=== PATIENT | female | born 1980 | race African-American/Black ===

== ENCOUNTER 2017-01-09 17:23 | Emergency (ER) | payer OTHER ==
[2017-01-09 17:28] VITALS: BP 132/74; PULSE 87; TEMP 98.3; BMI 32.8
--- NOTE | 2017-01-09 18:32 | PDOC ---
History of Present Illness - General History Source: Patient Exam Limitations: No Limitations - History of Present Illness Initial Comments: 01/09/17 19:29 The patient is a 36 year old female with a significant past medical history of anemia, presenting to the Emergency Department with right eye swelling, and generalized weakness. The patient reports that a few days ago she irritated her eye when face scrub got into her right eye. She reports seeing her PCP for the eye swelling, who diagnosed her with a stye. She admits that her eye is still slightly swollen and irritated. She also reports that she has been feeling overall weak as of this morning. 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 She admits that her bowel movements have been loose over the past few days. She denies a change in diet, though she admits to eating a diet heavy in carbs. The patient denies blurry vision, double vision, and change in vision. Patient denies nausea, vomiting, and diarrhea. Patient denies lightheadedness, dizziness , or syncope. Patient denies fever, chills, and cough. PCP: Dr. Oliva <Sybil Quintero - Last Filed: 01/09/17 19:29> <Sherri Oviedo - Last Filed: 01/11/17 03:21> - General Chief Complaint: Chest Pain Stated Complaint: CHEST PAIN/RT EYE PROBLEM Time Seen by Provider: 01/09/17 18:27 Past History <Sybil Quintero - Last Filed: 01/09/17 19:29> - Past Medical History Other medical history: denies - Psycho/Social/Smoking Cessation Hx Anxiety: No Suicidal Ideation: No Smoking History: Current every day smoker Have you smoked in the past 12 months: Yes Number of Cigarettes Smoked Daily: 12 Information on smoking cessation initiated: No 'Breaking Loose' booklet given: 01/09/17 Hx Alcohol Use: No Drug/Substance Use Hx: No Substance Use Type: None <Sherri Oviedo - Last Filed: 01/11/17 03:21> - Past Medical History Allergies/Adverse Reactions: Allergies Allergy/AdvReac Type Severity Reaction Status Date / Time codeine Allergy PALPITATION Verified 10/13/16 07:34 S Home Medications: Ambulatory Orders Erythromycin 0.5% Eye Ointment [Erythromycin 0.5% Eye Ointment -] 1 applic OD BID #1 tube 01/09/17 Review of Systems - Review of Systems Able to Perform ROS?: Yes Comments:: 01/09/17 19:29 GENERAL/CONSTITUTIONAL: + generalized weakness. No fever or chills. HEAD, EYES, EARS, NOSE AND THROAT: + right eye swelling. No change in vision. No ear pain or discharge. No sore throat. CARDIOVASCULAR: No chest pain or shortness of breath. RESPIRATORY: No cough, wheezing, or hemoptysis. GASTROINTESTINAL: No nausea, vomiting, diarrhea or constipation. GENITOURINARY: No dysuria, frequency, or change in urination. MUSCULOSKELETAL: No joint or muscle swelling or pain. No neck or back pain. SKIN: No rash NEUROLOGIC: No headache, vertigo, loss of consciousness, or change in strength/ sensation. ENDOCRINE: No increased thirst. No abnormal weight change. HEMATOLOGIC/LYMPHATIC: No easy bleeding, or history of blood clots. ALLERGIC/IMMUNOLOGIC: No hives or skin allergy. <Sybil Quintero - Last Filed: 01/09/17 19:29> *Physical Exam - Vital Signs Last Vital Signs Temp Pulse Resp BP Pulse Ox 98.3 F 87 18 132/74 99 01/09/17 17:25 01/09/17 17:25 01/09/17 17:25 01/09/17 17:25 01/09/17 17:25 - Physical Exam Comments: 01/09/17 19:31 GENERAL: Awake, alert, and fully oriented, in no acute distress HEAD: No signs of trauma EYES: PERRLA, EOMI, sclera anicteric, conjunctiva clear ENT: Auricles normal inspection, hearing grossly normal, nares patent, oropharynx clear without exudates. Moist mucosa NECK: Normal ROM, supple, no lymphadenopathy, JVD, or masses LUNGS: Breath sounds equal, clear to auscultation bilaterally. No wheezes, and no crackles HEART: Regular rate and rhythm, normal S1 and S2, no murmurs, rubs or gallops ABDOMEN: Soft, nontender, normoactive bowel sounds. No guarding, no rebound. No masses EXTREMITIES: Normal range of motion, no edema. No clubbing or cyanosis. No cords, erythema, or tenderness NEUROLOGICAL: Cranial nerves II through XII grossly intact. Normal speech, normal gait SKIN: Warm, Dry, normal turgor, no rashes or lesions noted. <Sybil Quintero - Last Filed: 01/09/17 19:29> - Vital Signs Last Vital Signs Temp Pulse Resp BP Pulse Ox 98.3 F 87 18 132/74 99 01/09/17 17:25 01/09/17 17:25 01/09/17 17:25 01/09/17 17:25 01/09/17 17:25 <Sherri Oviedo - Last Filed: 01/11/17 03:21> ED Treatment Course - ADDITIONAL ORDERS Additional order review: Laboratory Results 01/09/17 18:54 Urine HCG, Qual Negative <Sybil Quintero - Last Filed: 01/09/17 19:29> - LABORATORY CBC & Chemistry Diagram: 01/09/17 19:43 01/09/17 19:43 <Sherri Oviedo - Last Filed: 01/11/17 03:21> Medical Decision Making - Medical Decision Making 01/09/17 20:20 CXR normal; EKG NSR; HB/HCT normal; chem pending 01/11/17 03:19 PT HAS A STYE; HOWEVER SHE FEARS THAT SHE IS ANEMIC AND SHE ALSO COMPLAINS OF CHEST PAIN. SHE HAS A NORMAL EXAM; SHE HAS NORMAL LABS. SHE WILL BE ASKED TO FOLLOW WITH HER PMD; I WILL GIVE HER ERYTHROMYCIN OINTMENT FOR HER EYE, SHE STATES THAT HER EYEDROPS ARE NOT HELPING HER. FLUROESCINE EXAM DEMONSTRATES NO CORNEAL ABRASION. <Sherri Oviedo - Last Filed: 01/11/17 03:21> *DC/Admit/Observation/Transfer - Attestations Scribe Attestion: 01/09/17 19:31 Documentation prepared by Sybil Quintero, acting as director medical science for Sherri Oviedo MD. <Sybil Quintero - Last Filed: 01/09/17 19:29> - Discharge Dispostion Admit: No <Sherri Oviedo - Last Filed: 01/11/17 03:21> Diagnosis at time of Disposition: Irritation of right eye, Atypical chest pain, Stye - Discharge Dispostion Disposition: HOME Condition at time of disposition: Stable - Prescriptions Prescriptions: Erythromycin 0.5% Eye Ointment [Erythromycin 0.5% Eye Ointment -] 1 applic OD BID #1 tube - Referrals Referrals: Linden Oliva MD [Primary Care Provider] - Nathanael Mckeon [Staff Physician] - - Patient Instructions Printed Discharge Instructions: DI for Atypical Chest Pain, DI for Hordeolum
[2017-01-09] MEDS ORDERED: ERYTHROMYCIN 0.5% OPHTHALMIC OINTMENT 3.5 GM TUBE OD ONE (19:19)
[2017-01-09] MEDS ORDERED: TETRACAINE 0.5% OPHTH SOLN 2 ML BOTTLE ONE (19:28)
[2017-01-09] MEDS ORDERED: FLUORESCEIN NA 1 EA STRIP ONE (19:28)
[2017-01-09] MEDS ORDERED: ERYTHROMYCIN 0.5% OPHTHALMIC OINTMENT 3.5 GM TUBE ONE (19:28)
[2017-01-09 19:51] LABS: BASOPHIL 1.2 % (0-2.0); EOSINOPHIL 4.2 % (0-4.5); MCH 30.4 pg (25.7-33.7); MCHC 33.6 g/dl (32.0-36.0); MEAN CELL VOLUME 90.3 fl (80-96); MEAN PLT VOLUME 7.8 fl (7.5-11.1); NEUTROPHILS 51.9 % (42.8-82.8); PLATELET COUNT 237 K/MM3 (134-434); RDW 14.1 % (11.6-15.6); WHITE BLOOD COUNT 5.8 K/mm3 (4.0-10.0)
[2017-01-09 20:18] LABS: ALBUMIN 3.4 g/dl (3.4-5.0); ANION GAP 8 (8-16); CALCIUM 9.3 mg/dL (8.5-10.1); CO2 29 mmol/L (21-32); GLUCOSE,RANDOM 98 mg/dL (74-106); SGPT/ALT 26 U/L (12-78)
[2017-01-09 20:21] LABS: ALK PHOS 64 U/L (45-117); BILIRUBIN,TOTAL 0.3 mg/dL (0.2-1.0); COCKROFT - GAULT 143.3695; CREATININE 0.8 mg/dL (0.55-1.02); SGOT/AST 24 U/L (15-37); TOT PROT 6.9 g/dl (6.4-8.2)
--- NOTE | 2017-01-11 12:15 | EKG ---
Test Reason : Blood Pressure : / mmHG Vent. Rate : 090 BPM Atrial Rate : 090 BPM P-R Int : 166 ms QRS Dur : 084 ms QT Int : 362 ms P-R-T Axes : 043 017 044 degrees QTc Int : 442 ms NORMAL SINUS RHYTHM NORMAL ECG WHEN COMPARED WITH ECG OF 20-AUG-2015 07:43, NO SIGNIFICANT CHANGE WAS FOUND Confirmed by MANJINDER CELESTIN MD ([id number]) on 01/11/2017 12:15:31 PM Referred By: Confirmed By:MANJINDER CELESTIN MD
== END 2017-01-09 20:58 | disposition home or self-care (01) ==
LOC: JER 17:23
DX: R07.89 Other chest pain (principal); H00.013 Hordeolum externum right eye, unspecified eyelid
CPT/HCPCS: 36415; 71020-TC; 80053; 84703; 85025; 93005; 93010; 99283-25

== ENCOUNTER 2017-04-06 08:06 | Emergency (ER) | payer OTHER ==
[2017-04-06 08:16] VITALS: BP 131/81; PULSE 81; TEMP 97.8; BMI 33.2
[2017-04-06] MEDS ORDERED: IBUPROFEN 600 MG TABLET (FP) PO ONE ×2 (08:42→08:43)
--- NOTE | 2017-04-06 08:48 | PDOC ---
History of Present Illness - General Chief Complaint: Ear Problem Stated Complaint: EAR PROBLEM Time Seen by Provider: 04/06/17 08:25 History Source: Patient Exam Limitations: No Limitations - History of Present Illness Initial Comments: 04/06/17 08:43 CHIEF COMPLAINT: Left Ear pain HISTORY OF PRESENT ILLNESS: This is an otherwise healthy, 37-year-old female. She presents complaining of left ear pain. Currently on Augmentin for dental work. States that she feels a foreign body to the left ear. Uses a alessia pin to scratch ear from her wig. REVIEW OF SYSTEMS: GENERAL/CONSTITUTIONAL: No fever or chills. No weakness. No weight change. HEAD, EYES, EARS, NOSE AND THROAT: Foreign body sensation to the left ear since last night. No radiating pain. No change in hearing. NEUROLOGIC: Intermittent headache. No vertigo, loss of consciousness, or loss of sensation. ALLERGIC/IMMUNOLOGIC: No hives or skin allergy. No latex allergy. PHYSICAL EXAM: GENERAL: The patient is awake, alert, and fully oriented, in no acute distress. HEAD: Normal with no signs of trauma. ENT: Left auditory canal with small abrasion and TM are normal. Right auditory canal normal. TM pearly goodwin with normal light reflex. No Tenderness over mastoid. Pupils equal, round and reactive to light, extraocular movements intact , sclera anicteric, conjunctiva clear. Neck supple. No adenopathy. NEUROLOGICAL: Normal speech, normal gait. CN II-XII grossly intact. PSYCH: Normal mood, normal affect. SKIN: Warm, Dry, normal turgor, no rashes or lesions noted. Past History - Past Medical History Allergies/Adverse Reactions: Allergies Allergy/AdvReac Type Severity Reaction Status Date / Time codeine Allergy PALPITATION Verified 04/06/17 08:16 S Home Medications: Ambulatory Orders Amox-Tr/K Cl [Augmentin 875-125mg Tablet -] 1 tab PO BID 04/06/17 Ciprofloxacin HCl/Dexameth [Ciprodex Otic Suspension] 4 drop BID #1 bottle - Psycho/Social/Smoking Cessation Hx Anxiety: No Suicidal Ideation: No Smoking History: Current every day smoker Have you smoked in the past 12 months: Yes Number of Cigarettes Smoked Daily: 12 Information on smoking cessation initiated: No 'Breaking Loose' booklet given: 04/22/17 Hx Alcohol Use: No Drug/Substance Use Hx: No Substance Use Type: None *Physical Exam - Vital Signs Last Vital Signs Temp Pulse Resp BP Pulse Ox 97.8 F 81 18 131/81 98 04/06/17 08:12 04/06/17 08:12 04/06/17 08:12 04/06/17 08:12 04/06/17 08:12 Medical Decision Making - Medical Decision Making 04/06/17 08:46 A/P: Abrasion to the left auditory canal. Will give Cipro based drop Motrin for pain Follow up with ENT. *DC/Admit/Observation/Transfer Diagnosis at time of Disposition: Abrasion of ear canal Qualifiers: Encounter type: initial encounter Laterality: left Qualified Code(s): S00.412A - Abrasion of left ear, initial encounter - Discharge Dispostion Disposition: HOME Condition at time of disposition: Good Admit: No - Prescriptions Prescriptions: Ciprofloxacin HCl/Dexameth [Ciprodex Otic Suspension] 4 drop BID #1 bottle - Referrals Referrals: Linden Oliva MD [Primary Care Provider] -
== END 2017-04-06 08:52 | disposition home or self-care (01) ==
LOC: JERFT 08:06
DX: S00.412A Abrasion of left ear, initial encounter (principal); W22.8XXA Striking against or struck by other objects, initial encounter; Y93.E8 Activity, other personal hygiene; Y92.038 Other place in apartment as the place of occurrence of the external cause; F17.210 Nicotine dependence, cigarettes, uncomplicated
CPT/HCPCS: 99281-25

== ENCOUNTER 2018-11-23 07:27 | Emergency (ER) | payer OTHER ==
[2018-11-23 07:56] VITALS: TEMP 98.1; BMI 29.7
[2018-11-23] MEDS ORDERED: KETOROLAC TROMETHAMINE 30 MG/1 ML VIAL IVPUSH ONE (09:26)
--- NOTE | 2018-11-23 09:54 | PDOC ---
History of Present Illness - General Chief Complaint: Blood Pressure Problem Stated Complaint: HEAD PAIN Time Seen by Provider: 11/23/18 08:24 History Source: Patient Exam Limitations: No Limitations - History of Present Illness Initial Comments: 11/23/18 09:09 38-year-old female presents to ED with complaints of right calf pain for the past week worsened with bending and notes intermittent swelling to her ankle. 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 Patient also complaining of right ear pain which she just started eardrops for last evening prescribed by her PCP but states pain continues now radiating to her right temporal region and throat. Patient denies fever, chills, visual changes, neck stiffness or difficulty swallowing. Patient states is normally very anxious and started to think if she had a clot in her leg along with of clot in her brain and this morning after checking her blood pressure she stated she felt chest pain and difficulty breathing which lasted about 5 minutes and then resolved after utilizing relaxation methods. Patient currently denies any chest pain palpitations difficulty breathing or respiratory symptoms. Patient states took Excedrin yesterday with no improvement and also took a friend's pill which she states was hydroxyzine 25 mg while at work yesterday due to anxiety. Timing/Duration: other Severity: mild, moderate Associated Symptoms: reports: headaches Past History - Travel Traveled outside of the country in the last 30 days: No Close contact w/someone who was outside of country & ill: No - Past Medical History Allergies/Adverse Reactions: Allergies Allergy/AdvReac Type Severity Reaction Status Date / Time codeine Allergy PALPITATION Verified 11/23/18 07:45 S Home Medications: Ambulatory Orders NK [No Known Home Medication] 11/23/18 COPD: No - Suicide/Smoking/Psychosocial Hx Smoking History: Never smoked Have you smoked in the past 12 months: Yes Number of Cigarettes Smoked Daily: 12 'Breaking Loose' booklet given: 01/09/17 Hx Alcohol Use: No Drug/Substance Use Hx: No Substance Use Type: None Patient Lives Alone: Yes Lives with/in: lives alone Review of Systems - Review of Systems Able to Perform ROS?: Yes Constitutional: No: Symptoms Reported HEENTM: Yes: Ear Pain, Throat Pain Respiratory: No: Cough, Shortness of Breath Cardiac (ROS): No: Chest Pain ABD/GI: No: Symptoms Reported : No: Symptoms Reported Musculoskeletal: Yes: Muscle Pain (right calf) Integumentary: No: Symptoms Reported Neurological: Yes: Headache. No: Weakness, Dizziness Endocrine: No: Symptoms Reported Hematologic/Lymphatic: No: Symptoms Reported *Physical Exam - Vital Signs Last Vital Signs Temp Pulse Resp BP Pulse Ox 98.1 F 82 18 143/100 100 11/23/18 07:52 11/23/18 07:52 11/23/18 07:52 11/23/18 07:52 11/23/18 07:52 - Physical Exam General Appearance: Yes: Nourished, Appropriately Dressed. No: Apparent Distress HEENT: positive: EOMI, GINETTE, TMs Normal (right ear canal erythematous), Pharynx Normal. negative: Pale Conjunctivae Neck: positive: Normal Thyroid, Supple. negative: Tender, Decreased range of motion Respiratory/Chest: positive: Lungs Clear, Normal Breath Sounds. negative: Chest Tender, Respiratory Distress, Accessory Muscle Use Cardiovascular: positive: Regular Rhythm, Regular Rate. negative: Murmur Gastrointestinal/Abdominal: positive: Soft. negative: Tenderness Extremity: positive: Normal Capillary Refill, Normal Inspection, Normal Range of Motion, Tender (right calf and posterior aspect of right knee no palpable masses no swelling), Other (negative Homans sign /no edema/ no skin discoloration, ) Integumentary: positive: Normal Color, Warm, Moist Neurologic: positive: Motor Strength 5/5 (ambulatory) Moderate Sedation - Procedure Monitoring Vital Signs: Procedure Monitoring Vital Signs Temperature 98.1 F 11/23/18 07:52 Pulse Rate 82 11/23/18 07:52 Respiratory Rate 18 11/23/18 07:52 Blood Pressure 143/100 11/23/18 07:52 O2 Sat by Pulse Oximetry (%) 100 11/23/18 07:52 Heart Score/ECG Review - ECG Intrepretation Rhythm: Regular Rhythm (Rate 73. Sinus rhythm with PAC. No ST elevation or depression) ED Treatment Course - LABORATORY CBC & Chemistry Diagram: 11/23/18 09:53 11/23/18 09:53 - RADIOLOGY Radiology Studies Ordered: Category Date Time Status HEAD CT WITHOUT CONTRAST [CT] Stat CT Scan 11/23/18 09:25 Ordered DUPLEX VASCUL US-1 LEG [US] Stat Ultrasound 11/23/18 09:25 Ordered Medical Decision Making - Medical Decision Making 11/23/18 09:09 Chief complaint: Patient with headache right ear pain and right calf pain patient denies history of migraine but states has had similar headaches in took an Excedrin with no relief. Patient states also took a hydroxyzine 2 days ago secondary to anxiety which she feels triggered her symptoms of headache. Patient denies history of hypertension but states does not follow a low-fat low- salt diet and her mother has history of hypertension. Exam BP 143/100 right calf tenderness on exam. Negative Homans erythema noted to right ear canal TM intact, Plan: Head CT, CBC, comp, EKG duplex lower extremity and Toradol IV 11/23/18 11:36 Laboratory Tests 11/23/18 11/23/18 11/23/18 09:53 09:53 09:53 WBC 4.5 Hgb 13.4 Hct 38.9 Monocytes % 10.7 H Sodium 141 Potassium 4.1 Chloride 110 H Carbon Dioxide 26 Anion Gap 6 L BUN 8 Creatinine 0.8 Creat Clearance w eGFR > 60 Random Glucose 82 Calcium 8.4 L Total Bilirubin 0.3 AST 19 ALT 25 Alkaline Phosphatase 61 Albumin 3.4 Serum , Qual Negative Duplex negative for deep venous thrombosis. There is no Harden's cyst. CT head results pending patient states feeling better after receiving medication. 11/23/18 12:24 Negative acute intracranial pathology. There has been no change since comparison to 10/13/2016. discharge home *DC/Admit/Observation/Transfer Diagnosis at time of Disposition: Right-sided headache - Discharge Dispostion Disposition: HOME Condition at time of disposition: Improved - Referrals Referrals: Linden Oliva MD [Primary Care Provider] - - Patient Instructions Printed Discharge Instructions: How to Monitor Your Blood Pressure at Home, DI for Hormonal and Tension Headaches Additional Instructions: At this time I recommend taking Motrin 600 mg every 8 hours for discomfort. Continue with eardrops be a right ear infection. - Post Discharge Activity
[2018-11-23] MEDS ORDERED: KETOROLAC TROMETHAMINE 30 MG/1 ML VIAL ONE (09:55)
[2018-11-23 10:08] LABS: BASO % 0.2 % (0-2.0); EOS % 3.7 % (0-4.5); HEMATOCRIT 38.9 % (32.4-45.2); HEMOGLOBIN 13.4 GM/dL (10.7-15.3); LYMPH % 33.6 % (8-40); MCH 31.1 pg (25.7-33.7); MCHC 34.5 g/dl (32.0-36.0); MEAN CELL VOLUME 90.1 fl (80-96); MEAN PLT VOLUME 7.5 fl (7.5-11.1); MONO % 10.7 % (3.8-10.2); NEUT % 51.8 % (42.8-82.8); PLATELET COUNT 251 K/MM3 (134-434); RBC 4.32 M/mm3 (3.60-5.2); RDW 14.2 % (11.6-15.6); WHITE BLOOD COUNT 4.5 K/mm3 (4.0-10.0)
[2018-11-23 10:37] LABS: ALBUMIN 3.4 g/dl (3.4-5.0); ALK PHOS 61 U/L (45-117); ANION GAP 6 MMOL/L (8-16); BILIRUBIN,TOTAL 0.3 mg/dL (0.2-1); BLOOD UREA NITROGEN 8 mg/dL (7-18); CALCIUM 8.4 mg/dL (8.5-10.1); CHLORIDE 110 mmol/L (98-107); CO2 26 mmol/L (21-32); CREATININE 0.8 mg/dL (0.55-1.3); GLUCOSE,RANDOM 82 mg/dL (74-106); POTASSIUM 4.1 mmol/L (3.5-5.1); SGOT/AST 19 U/L (15-37); SGPT/ALT 25 U/L (13-61); SODIUM 141 mmol/L (136-145)
--- NOTE | 2018-11-23 11:17 | EKG ---
Test Reason : Blood Pressure : / mmHG Vent. Rate : 073 BPM Atrial Rate : 073 BPM P-R Int : 188 ms QRS Dur : 086 ms QT Int : 404 ms P-R-T Axes : 074 028 047 degrees QTc Int : 445 ms SINUS RHYTHM WITH PREMATURE ATRIAL COMPLEXES WITH ABERRANT CONDUCTION OTHERWISE NORMAL ECG WHEN COMPARED WITH ECG OF 09-JAN-2017 17:33, ABERRANT CONDUCTION IS NOW PRESENT Confirmed by OBI CRANDALL, RAFAEL ([id number]) on 11/23/2018 11:17:07 AM Referred By: Confirmed By:RAFAEL CROCKER MD
[2018-11-23 13:22] VITALS: BP 140/95; PULSE 94
== END 2018-11-23 13:23 | disposition home or self-care (01) ==
LOC: JER 07:27
PROC: 3E0333Z Introduction of Anti-inflammatory into Peripheral Vein, Percutaneous Approach (ICD-10-PCS; principal; 2018-11-23)
DX: R51 Headache (principal)
CPT/HCPCS: 36415; 70450-TC; 80053; 84703; 85025; 93005; 93010; 93971-TC; 99284-25

== ENCOUNTER 2019-04-05 18:29 | Emergency (ER) | payer OTHER ==
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
[2019-04-05 18:53] VITALS: BP 131/75; PULSE 73; TEMP 98.9; BMI 31.9
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
[2019-04-05] MEDS ORDERED: ACETAMINOPHEN 325 MG TABLET (FP) PO ONE (20:58)
[2019-04-05] MEDS ORDERED: ACETAMINOPHEN 325 MG TABLET (FP) ONE (21:23)
== END 2019-04-05 22:54 | disposition home or self-care (01) ==
LOC: JER 18:29
DX: S00.83XA Contusion of other part of head, initial encounter (principal); S09.90XA Unspecified injury of head, initial encounter; T14.8XXA Other injury of unspecified body region, initial encounter; V43.62XA Car passenger injured in collision with other type car in traffic accident, initial encounter; Y93.89 Activity, other specified; Y92.410 Unspecified street and highway as the place of occurrence of the external cause
CPT/HCPCS: 70450-TC; 84703; 99282-25